=== PATIENT | male | born 1935 | race Caucasian/White ===

== ENCOUNTER 2020-12-03 12:28 | Emergency (ER) | payer MEDICARE ==
[~2020-12-03 12:28] MED LIST: ATENOLOL25 MG PO; LEVAQUIN500 MG PO; OMEPRAZOLE20 MG PO; PRAVACHOL20 MG PO; TENORMIN 25 MG25 MG PO; TYLENOL W/CODEIN1 E1 PO; VASOTEC 2.5 MG2.5 MG PO; ZYLOPRIM 300 M300 MG PO
[2020-12-03 13:04] LABS: HEMOGLOBIN 10.1 gm/dl (14.0-17.5); RED BLOOD COUNT 3.22 M/UL (4.20-5.50); WHITE BLOOD COUNT 5.7 K/UL (4.5-11.0)
[2020-12-03 13:30] LABS: BUN/CREATININE RATIO 17 (0-10)
[2020-12-07] MEDS ORDERED: BETAPACE 80MG T80 MG PO (10:10)
[2021-02-05] MEDS ORDERED: NORVASC10 MG PO (15:13)
== END 2020-12-03 15:31 | disposition home or self-care (01) ==
LOC: ER1 12:28
PROVIDERS: Emergency Medicine
DX: I47.1 Supraventricular tachycardia (principal); I48.91 Unspecified atrial fibrillation
CPT/HCPCS: 71045; 80053; 82550; 82553; 83874; 84484; 85025; 93270; 96374; 99285; J0153

== ENCOUNTER 2020-12-05 06:31 | Observation (INO) | payer MEDICARE ==
[~2020-12-05] VITALS: Ht 193 cm; Wt 83.5 kg
[2020-12-05] MEDS ORDERED: ELIQUIS 5 MG TAB5 MG PO (16:39)
[2020-12-05] MEDS ORDERED: AMARYL2 MG PO (16:41)
[2020-12-05] MEDS ORDERED: TRAZODONE HCL300 MG PO (16:42)
[2020-12-05] MEDS ORDERED: ANIMAL CHEWS1 EACH PO (16:44)
[2020-12-05] MEDS ORDERED: COLACE100 MG PO (16:45)
[2020-12-05] MEDS ORDERED: BENADRYL25 MG PO (16:46)
[2020-12-05 17:14] LABS: RED BLOOD COUNT 3.5 M/UL (4.20-5.50); WHITE BLOOD COUNT 5.7 K/UL (4.5-11.0)
[2020-12-05 17:57] LABS: BUN/CREATININE RATIO 16 (0-10)
[2020-12-06 04:45] LABS: WHITE BLOOD COUNT 5.1 K/UL (4.5-11.0)
[2020-12-06 04:46] LABS: RED BLOOD COUNT 3.13 M/UL (4.20-5.50)
[2020-12-06 05:08] LABS: BUN/CREATININE RATIO 16 (0-10)
[2020-12-07] MEDS ORDERED: BETAPACE 80MG T80 MG PO (10:10)
== END 2020-12-07 12:10 | disposition home or self-care (01) ==
LOC: M/S 15:39
PROVIDERS: Physician Assistant; ADMIT Internal Medicine
DX: I95.1 Orthostatic hypotension (principal); I48.0 Paroxysmal atrial fibrillation; I49.5 Sick sinus syndrome; I47.9 Paroxysmal tachycardia, unspecified; I10 Essential (primary) hypertension; E78.5 Hyperlipidemia, unspecified; E11.9 Type 2 diabetes mellitus without complications; I27.20 Pulmonary hypertension, unspecified; M10.9 Gout, unspecified; I07.1 Rheumatic tricuspid insufficiency; D64.9 Anemia, unspecified; R63.0 Anorexia; Z68.22 Body mass index [BMI] 22.0-22.9, adult; Z85.46 Personal history of malignant neoplasm of prostate; Z92.3 Personal history of irradiation; Z79.84 Long term (current) use of oral hypoglycemic drugs; Z95.0 Presence of cardiac pacemaker; Z79.01 Long term (current) use of anticoagulants; Z79.899 Other long term (current) drug therapy
CPT/HCPCS: ECHO; 36415; 80048; 80053; 82550; 82553; 82962; 83036; 83735; 84439; 84443; 84484; 85025; 85652; 86140; 93005; 93306; 97161; G0378; G0379; J7030

== ENCOUNTER 2021-01-08 15:26 | Inpatient (IN) | payer MEDICARE ==
[~2021-01-08] VITALS: Ht 195.6 cm; Wt 81.7 kg
[~2021-01-08 15:26] MED LIST changes: +AMARYL2 MG PO; +ANIMAL CHEWS1 EACH PO; +BENADRYL25 MG PO; +BETAPACE 80MG T80 MG PO; +COLACE100 MG PO; +ELIQUIS 5 MG TAB5 MG PO; +TRAZODONE HCL300 MG PO
[2021-01-08 16:30] LABS: HEMOGLOBIN 10.6 gm/dl (14.0-17.5); RED BLOOD COUNT 3.36 M/UL (4.20-5.50); WHITE BLOOD COUNT 6.2 K/UL (4.5-11.0)
[2021-01-08] MEDS ORDERED: CYPROHEPTADINE H4 MG PO (20:14)
[2021-01-08] MEDS ORDERED: MELATONIN10 M2 PO (20:15)
[2021-01-08] MEDS ORDERED: KLONOPIN0.5 MG PO (20:15)
[2021-01-08] MEDS ORDERED: MAGNESIUM500 MG PO (20:15)
[2021-01-09 03:51] LABS: BUN/CREATININE RATIO 14 (0-10)
--- NOTE | 2021-01-09 15:59 | NUR ---
PER MD ORDER PATIENT B/P LAYING 136/87. SITTING 141/89. STANDING 122/84.
[2021-02-05] MEDS ORDERED: NORVASC10 MG PO (15:13)
== END 2021-01-11 12:33 | disposition home or self-care (01) | DRG 274 ==
LOC: ER1 15:26 → PROG CARE 17:54 → CDU 17:54 → PROG CARE 20:04
PROVIDERS: Emergency Medicine; ADMIT Internal Medicine Infectious Disease
PROC: 02583ZZ Destruction of Conduction Mechanism, Percutaneous Approach (ICD-10-PCS; principal; 2021-01-10)
PROC: 02K83ZZ Map Conduction Mechanism, Percutaneous Approach (ICD-10-PCS; 2021-01-10)
PROC: 4A023FZ Measurement of Cardiac Rhythm, Percutaneous Approach (ICD-10-PCS; 2021-01-10)
PROC: 4A0234Z Measurement of Cardiac Electrical Activity, Percutaneous Approach (ICD-10-PCS; 2021-01-10)
DX: I47.1 Supraventricular tachycardia (principal); I95.1 Orthostatic hypotension; I49.5 Sick sinus syndrome; I27.20 Pulmonary hypertension, unspecified; E11.9 Type 2 diabetes mellitus without complications; E78.5 Hyperlipidemia, unspecified; D53.9 Nutritional anemia, unspecified; E83.42 Hypomagnesemia; E86.0 Dehydration; Z95.0 Presence of cardiac pacemaker; Z85.46 Personal history of malignant neoplasm of prostate; Z90.89 Acquired absence of other organs; Z82.49 Family history of ischemic heart disease and other diseases of the circulatory system; Z83.3 Family history of diabetes mellitus; I10 Essential (primary) hypertension; Z79.01 Long term (current) use of anticoagulants
CPT/HCPCS: 36415; 71045; 80053; 82550; 82553; 83735; 83874; 83880; 84100; 84439; 84443; 84484; 85025; 85379; 85610; 85730; 93005; 93609; 93621; 93623; 96374; 96375; 99152; 99153; 99285; C1730; C1733; C1766; G0378; J0461; J1200; J1644; J2250; J3010; J3475; J7040; J7050; U0002

== ENCOUNTER 2021-02-03 15:07 | Inpatient (IN) | payer MEDICARE ==
[~2021-02-03] VITALS: Ht 195.6 cm; Wt 81.7 kg
[~2021-02-03 15:07] MED LIST changes: +CYPROHEPTADINE H4 MG PO; +KLONOPIN0.5 MG PO; +MAGNESIUM500 MG PO; +MELATONIN10 M2 PO
[2021-02-03 18:10] LABS: RED BLOOD COUNT 3.18 M/UL (4.20-5.50)
[2021-02-03 18:11] LABS: HEMOGLOBIN 10.1 gm/dl (14.0-17.5)
[2021-02-04 03:23] LABS: HEMOGLOBIN 10.5 gm/dl (14.0-17.5); RED BLOOD COUNT 3.19 M/UL (4.20-5.50); WHITE BLOOD COUNT 5.7 K/UL (4.5-11.0)
[2021-02-05 03:05] LABS: HEMOGLOBIN 10.2 gm/dl (14.0-17.5); RED BLOOD COUNT 3.2 M/UL (4.20-5.50); WHITE BLOOD COUNT 4.8 K/UL (4.5-11.0)
[2021-02-05 03:23] LABS: BUN/CREATININE RATIO 14 (0-10)
[2021-02-05] MEDS ORDERED: NORVASC10 MG PO (15:13)
== END 2021-02-05 16:10 | disposition home or self-care (01) | DRG 274 ==
LOC: ER1 15:07 → CDU 17:43 → PROG CARE 22:02
PROVIDERS: Emergency Medicine; ADMIT Internal Medicine
PROC: 5A2204Z Restoration of Cardiac Rhythm, Single (ICD-10-PCS; 2021-02-03)
PROC: 02583ZZ Destruction of Conduction Mechanism, Percutaneous Approach (ICD-10-PCS; principal; 2021-02-04)
PROC: 4A023FZ Measurement of Cardiac Rhythm, Percutaneous Approach (ICD-10-PCS; 2021-02-04)
PROC: 4A0234Z Measurement of Cardiac Electrical Activity, Percutaneous Approach (ICD-10-PCS; 2021-02-04)
PROC: 02K83ZZ Map Conduction Mechanism, Percutaneous Approach (ICD-10-PCS; 2021-02-04)
DX: I47.1 Supraventricular tachycardia (principal); I49.5 Sick sinus syndrome; E11.9 Type 2 diabetes mellitus without complications; M10.9 Gout, unspecified; I48.0 Paroxysmal atrial fibrillation; I10 Essential (primary) hypertension; E78.5 Hyperlipidemia, unspecified; Z20.822 Contact with and (suspected) exposure to COVID-19; I27.20 Pulmonary hypertension, unspecified; D64.9 Anemia, unspecified; Z85.46 Personal history of malignant neoplasm of prostate; Z82.49 Family history of ischemic heart disease and other diseases of the circulatory system; Z91.81 History of falling; Z95.0 Presence of cardiac pacemaker; Z80.3 Family history of malignant neoplasm of breast; Z79.01 Long term (current) use of anticoagulants; Z79.84 Long term (current) use of oral hypoglycemic drugs; Z79.899 Other long term (current) drug therapy
CPT/HCPCS: 36415; 80053; 82550; 82553; 82962; 83540; 83550; 83735; 83874; 83880; 84439; 84443; 84484; 85025; 93005; 93609; 93620; 93621; 93622; 94760; 96374; 99152; 99153; 99285; C1733; C1766; J0153; J1644; J2250; J3010; J3475; J7040; Q9965; U0002

== ENCOUNTER → 2022-03-23 | Outpatient (CLI) | payer MEDICARE ==
[~2022-03-23] MED LIST changes: +NORVASC10 MG PO
== END ==
LOC: HEART 5 13:00
DX: R06.02 Shortness of breath (principal); R60.9 Edema, unspecified; I27.20 Pulmonary hypertension, unspecified; I08.3 Combined rheumatic disorders of mitral, aortic and tricuspid valves; Z95.0 Presence of cardiac pacemaker
CPT/HCPCS: 93306